=== PATIENT | male | born 1995 | race Caucasian/White ===

== ENCOUNTER 2018-02-23 17:27 | Emergency (ER) | payer OTHER ==
[~2018-02-23] VITALS: Ht 172.7 cm; Wt 63.5 kg
[~2018-02-23 17:27] MED LIST: ALBU90OI INH; PROCODE120 PO; SPACE CHAMBER1 EACH MC
== END 2018-02-23 18:59 | disposition home or self-care (01) ==
LOC: ER 17:27
DX: K02.9 Dental caries, unspecified (principal); Z88.0 Allergy status to penicillin; F17.210 Nicotine dependence, cigarettes, uncomplicated
CPT/HCPCS: 64400; 99283

== ENCOUNTER 2022-03-25 11:10 | Emergency (ER) | payer OTHER ==
[~2022-03-25] VITALS: Ht 172.7 cm; Wt 63.5 kg
== END 2022-03-25 12:53 | disposition left against medical advice (07) ==
LOC: ER 11:10
DX: M54.2 Cervicalgia (principal); M54.9 Dorsalgia, unspecified; R07.81 Pleurodynia; R51.9 Headache, unspecified; Z53.21 Procedure and treatment not carried out due to patient leaving prior to being seen by health care provider
CPT/HCPCS: 99281